=== PATIENT | female | born 1960 | race African-American/Black ===

== ENCOUNTER 2022-12-10 23:48 | Outpatient (CLI) | payer OTHER, MEDICAID | END 2022-12-10 23:49 | disposition left against medical advice (07) | LOC: EMS 23:48 | DX: R60.0 Localized edema (principal) ==

== ENCOUNTER 2024-01-09 12:07 | Emergency (ER) | payer OTHER, MEDICAID ==
[2024-01-09 12:51] VITALS: O2SAT 100
--- NOTE | 2024-01-09 15:03 | ED Physician Documentation ---
PD HPI LOWER EXT INJURY - Stated complaint Stated Complaint: LT LEG SWELLING, PX - Chief complaint Chief Complaint: Ext Problem - History obtained from History obtained from: Patient - Additional information Additional information: This is a 63-year-old woman who says she is completely healthy. She presents, in contrast to the nurses notes, with 3 days of severely painful swelling to the left lower extremity. After it started she stepped on a piece of broken glass and had a puncture in the skin. She had fevers and chills with this. Denies chest pain or trouble breathing. PD PAST MEDICAL HISTORY - Past Medical History Past Medical History: Yes Cardiovascular: None Respiratory: None Endocrine/Autoimmune: None GI: None DEVELOPMENT DISABILITY SPECIALIST: Ectopic : Incontinence HEENT: None Psych: Depression, Anxiety Musculoskeletal: None Derm: None - Past Surgical History Past Surgical History: Yes /DEVELOPMENT DISABILITY SPECIALIST: Other - Present Medications Home Medications: Ambulatory Orders Medication Instructions Recorded Confirmed Psych Meds Unknown 07/27/13 04/21/15 Clindamycin [Cleocin] 300 mg PO Q6H 10 Days capsule 04/21/15 Ibuprofen [Motrin] 800 mg PO Q8H PRN #30 tablet 04/21/15 Oxycodone HCl/Acetaminophen 1 - 2 tab PO Q4H PRN #15 tablet 04/21/15 [Percocet 5-325 mg Tablet] Oxycodone HCl/Acetaminophen 1 - 2 each PO Q6H PRN #14 tablet 01/09/24 [Percocet 5-325 mg Tablet] cephALEXin [Keflex] 500 mg PO Q6H #28 cap 01/09/24 - Allergies Allergies/Adverse Reactions: Allergies Allergy/AdvReac Type Severity Reaction Status Date / Time aspirin Allergy Nausea Verified 01/09/24 12:34 sunflower seeds Allergy Severe swelling Uncoded 09/05/13 11:01 tomatoes Allergy Severe swelling Uncoded 09/05/13 11:01 bathroom spray Allergy Mild Unknown Uncoded 09/04/13 14:38 - Social History Does the pt smoke?: Yes Smoking Status: Current every day smoker Does the pt drink ETOH?: Yes Does the pt have substance abuse?: No - Immunizations Immunizations are current?: No Immunizations: Other immun not current - POLST Patient has POLST: No PD ED PE NORMAL - Vitals Vital signs reviewed: Yes - General General: Alert and oriented X 3, Other (She is disheveled and smells strongly of tobacco and possibly of alcohol.) - Neck Neck: Supple, no meningeal sign, No bony TTP - Cardiac Cardiac: RRR, No murmur - Respiratory Respiratory: No respiratory distress, Clear bilaterally - Abdomen Abdomen: Non tender - Extremities Extremities: Other (The left leg is quite tender and swollen to mid thigh with some areas of weeping cellulitis. The foot is warm and well-perfused.) - Neuro Neuro: Alert and oriented X 3, No motor deficit, No sensory deficit, Normal speech Eye Opening: Spontaneous Motor: Obeys Commands Verbal: Oriented GCS Score: 15 - Psych Psych: Normal mood, Normal affect Results - Vitals Vitals: Vital Signs - 24 hr 01/09/24 01/09/24 12:36 16:31 Temperature 36.9 C 36.6 C Heart Rate 89 92 Respiratory 18 20 Rate Blood Pressure 109/57 L 109/71 O2 Saturation 100 100 Oxygen O2 Source Room air - Labs Labs: Laboratory Tests 01/09/24 01/09/24 01/09/24 15:11 15:11 15:11 WBC 13.0 H RBC 4.52 Hgb 13.8 Hct 41.8 MCV 92.5 MCH 30.5 MCHC 33.0 RDW 13.4 Plt Count 272 MPV 10.3 Neut # (Auto) 10.7 H Lymph # (Auto) 1.2 L Gilchrist # (Auto) 0.9 Eos # (Auto) 0.1 Baso # (Auto) 0.0 Absolute Nucleated RBC 0.00 Nucleated RBC % 0.0 Sodium 133 L Potassium 3.3 L Chloride 96 L Carbon Dioxide 28 Anion Gap 9.0 BUN 9 Creatinine 1.0 Estimated GFR (MDRD) 68 L Glucose 153 H Lactic Acid 2.7 H Calcium 9.2 Total Bilirubin 1.0 AST 13 ALT 16 Alkaline Phosphatase 73 Total Protein 7.3 Albumin 3.4 Globulin 3.9 Albumin/Globulin Ratio 0.9 L Ethyl Alcohol < 10.0 - Rads (name of study) Left leg DVT sono grossly negative with limited visualization of calf veins per RDMS Relevant Findings:: Prelim report reviewed PD Medical Decision Making - ED course ED course: She presents with left leg pain and swelling. It looks more like cellulitis than anything else. She has reassuring vital signs, no fever. Mild elevation of white count. She was administered antibiotics and DVT was ruled out. Departure - Departure Disposition: Home, Self Care Clinical Impression: Cellulitis Qualifiers: Site of cellulitis: extremity Site of cellulitis of extremity: lower extremity Laterality: left Qualified Code(s): L03.116 - Cellulitis of left lower limb Condition: Good Record reviewed to determine appropriate education?: Yes Instructions: Cellulitis Dc Follow-Up: Kaycee Sands MD [Provider Admit Priv/Credential] - Prescriptions: cephALEXin [Keflex] 500 mg PO Q6H #28 cap Oxycodone HCl/Acetaminophen [Percocet 5-325 mg Tablet] 1 - 2 each PO Q6H PRN #14 tablet PRN Reason: pain Comments: You have an infection known as cellulitis of your left leg. Elevate it is much as possible and I sent prescriptions for antibiotics and painkillers to [facility] at [address] [place] [address] [address] [facility] [place]. Follow-up with your primary care physician preferably Sunday or Sunday for recheck, call today for an appointment. I am prescribing a short course of narcotic pain medication for you. These are potentially dangerous and addictive medications that should be used carefully. These medications may constipate you. Take an avyp-zcb-nermddz stool softener (docusate) twice daily with plenty of water while taking these medications. If you go 24 hours without a bowel movement, take wkqc-[id number] miralax, per package instructions. Do not drink or drive while taking these medications. If you received narcotic or sedating medications while in the emergency department, do not drive for 24 hours. Store this medication in a safe, secure place and out of reach of children. It is a violation of federal law to give or sell this medication to another person or to use in a manner other than prescribed. The ED will not refill narcotic prescriptions, including prescriptions lost or stolen. To dispose of unwanted medications: 1. [facility] provides a drop box for medication in pill form only (no liquids) 8:00 am to 4:30 p.m. Sunday-Sunday in the lobby of the [facility], [address] Empty pills into ziplock bag before disposal. Call [phone] for information. 2.[employer] is a free service available to all [facility] residents. Go to [email or web address] Note that many narcotic pain relievers also contain Tylenol/acetaminophen. Please ensure that your total dose of acetaminophen from all sources does not exceed 3 g (3000 mg) per day. Forms: PCP List Discharge Date/Time: 01/09/24 16:31
[2024-01-09] MEDS: oxyCODONE 5 MG TABLET PO STA (15:16)
[2024-01-09 15:19] LABS: BASOPHILS % (AUTO) 0.3 %; EOSINOPHILS # (AUTO) 0.1 10^3/uL (0.0-0.7); EOSINOPHILS % (AUTO) 0.6 %; HCT - HEMATOCRIT 41.8 % (37.0-47.0); HGB - HEMOGLOBIN 13.8 g/dL (12.0-16.0); LYMPHOCYTES # (AUTO) 1.2 10^3/uL (1.5-3.5); LYMPHOCYTES % (AUTO) 9.4 %; MEAN CORPUSCULAR HEMOGLOBIN 30.5 pg (27.0-31.0); MEAN CORPUSCULAR VOLUME 92.5 fL (81.0-99.0); MEAN PLATELET VOLUME 10.3 fL (7.9-10.8); MONOCYTES # (AUTO) 0.9 10^3/uL (0.0-1.0); MONOCYTES % (AUTO) 6.5 %; NEUTROPHILS # (AUTO) 10.7 10^3/uL (1.5-6.6); NEUTROPHILS % (AUTO) 82.1 %; PLT - PLATELET COUNT 272 10^3/uL (130-450); RED BLOOD COUNT 4.52 10^6/uL (4.20-5.40); RED CELL DISTRIBUTION WIDTH 13.4 % (12.0-15.0)
[2024-01-09 15:32] LABS: ALBUMIN 3.4 g/dL (3.2-5.5); ALBUMIN/GLOBULIN RATIO 0.9 (1.0-2.2); ALKALINE PHOSPHATASE 73 IU/L (42-121); ALT ALANINE AMINOTRANSFERASE 16 IU/L (10-60); AST ASPARTATE AMINOTRANSFERASE 13 IU/L (10-42); BUN - BLOOD UREA NITROGEN 9 mg/dL (6-20); CALCIUM 9.2 mg/dL (8.5-10.3); CARBON DIOXIDE - CO2 28 mmol/L (21-32); CHLORIDE 96 mmol/L (101-111); ETOH - ETHANOL < 10.0 mg/dL; GFR - MDRD 68 (>89); GLUCOSE 153 mg/dL (74-104); POTASSIUM 3.3 mmol/L (3.5-4.5); SODIUM 133 mmol/L (135-145); TOTAL PROTEIN 7.3 g/dL (6.4-8.9)
[2024-01-09] MEDS: cephALEXin 250 MG CAPSULE PO STA (16:21)
--- NOTE | 2024-01-09 16:24 | Ultrasound Report ---
PROCEDURE: Duplex Ext Veins Left INDICATIONS: leg pain/swell TECHNIQUE: Real-time imaging, as well as color and pulse Doppler interrogation, were performed of the lower extr emity deep veins from the inguinal ligament to the popliteal fossa. Attempted visualization of the ca lf veins was performed. COMPARISON: None. FINDINGS: The deep veins are normally compressible, and free of intraluminal thrombus. Color and pu lse Doppler demonstrate normal phasic intraluminal flow. There is normal augmentation response to di stal compression maneuver. Lower leg edema. IMPRESSION: No deep venous thrombosis of the visualized lower extremity. Agree with preliminary interpretation provided to the ordering provider by the ultrasound technologis t. Reviewed by: Gabe Landin MD on 01/09/2024 3:23 PM ANUP Approved by: Gabe Landin MD on 01/09/2024 3:23 PM ANUP Station ID: [id number]
[2024-01-09 16:35] VITALS: BP 109/71
== END 2024-01-09 16:31 | disposition home or self-care (01) ==
LOC: ED 12:07
DX: L03.116 Cellulitis of left lower limb (principal); F17.200 Nicotine dependence, unspecified, uncomplicated
CPT/HCPCS: 36415; 80053; 82077; 83605; 85025; 87040; 93971; 99283; 99284; A9270

== ENCOUNTER 2025-03-03 12:21 | Observation (INO) ==
--- OUTSIDE RECORDS SUMMARY | 2025-03-03 12:45 | EXTERNAL MEDICAL SUMMARY RPT | Continuity of Care Document ---
Author Organization [facility] Address [address] [place] [id number] Phone Problems date description facility 2025-01-05 02:00 Unspecified corneal ulcer, righ t eye Replaced By [facility] 2025-01-05 11:47 Unspecified corneal ulcer, righ t eye Replaced By [facility] 2025-01-07 11:27 Unspecified corneal ulcer, righ t eye Replaced By [facility] 2025-01-07 11:27 Ocular pain, right eye Replaced By [facility] 2025-01-07 11:27 Other specified disorders of ey e and adnexa Replaced By [facility] Social History date description facility
[2025-03-03 14:17] LABS: HCT - HEMATOCRIT 34.4 % (37.0-47.0); HGB - HEMOGLOBIN 11.1 g/dL (12.0-16.0); MEAN PLATELET VOLUME 9.3 fL (7.9-10.8); NRBC ABSOLUTE COUNT (AUTO) 0.00 x10^3/uL; NUCLEATED RED BLOOD CELLS AUTO 0.0 /100WBC; PLT - PLATELET COUNT 409 10^3/uL (130-450); RED CELL DISTRIBUTION WIDTH 13.2 % (12.0-15.0)
--- NOTE | 2025-03-03 14:28 | ED Physician Documentation ---
History of Present Illness Stated complaint Stated Complaint: L LEG SWOLLEN Chief complaint Chief Complaint: Ext Problem History obtained from History obtained from: Patient and EMS History of Present Illness Pain level max: 5 Pain level now: 2 Additonal information Additional information: 65-year-old female, history of schizophrenia. Is apparently living in a hotel in the hotel not seeing her for a few days to call for a welfare check. EMS arrived and found her left foot red, warm, swollen. Brought her in. Patient does not know how long her leg has been swollen and painful for her. She states that she thinks that it started when she was walking in [place]. She states that she has had fevers and chills at home. She states it is painful to walk. Review of Systems Constitutional Reports: Fever and Chills Ears, nose, mouth, and throat Denies: Neck pain Cardiovascular Denies: chest pain Respiratory Denies: Cough Gastrointestinal Denies: Vomiting Musculoskeletal Denies: Back pain or Neck pain Integumentary/Breast Denies: Rash Meds/Allgy Home Medications Ambulatory Orders Medication Instructions Recorded Confirmed ofloxacin 0.3 % eye drops See Rx Instructions .Route 0 01/05/25 .COMPLEX #5 mL Allergies Allergies Allergy/AdvReac Type Severity Reaction Status Date / Time aspirin Allergy Nausea Verified 03/03/25 12:28 sunflower seed Allergy Edema Verified 03/03/25 14:12 tomato AdvReac Edema Verified 03/03/25 14:12 bathroom spray Allergy Mild Unknown Uncoded 03/03/25 12:28 PFSH Active Problems All Active Problems (Updated 03/03/25 @ 16:13 by Grupo Gaitan MD) Leukocytosis (Acute) Cellulitis (Acute) Corneal ulcer, right (Acute) Medical History Medical History (Updated 03/03/25 @ 16:13 by Grupo Gaitan MD) No pertinent past medical history Social History Social History (Updated 03/03/25 @ 14:18 by Joyce Boston, RN, BSN) Smoking Status: Smoker current status unk How many cigarettes a day do you smoke? (20 cigarettes=1 Pk): 10 Do you dip or chew tobacco?: No Do you vape?: No Patient requests smoking cessation consult: No Initiate information on smoking cessation: No Living arrangement: Other Living Arrangement Notes: unknown Do you feel safe in your home environment?: Yes History of physical, verbal, emotional, or financial abuse?: No Frequency: Occasional Are you sexually active?: Yes POLST Patient has POLST: No Exam Exam Vital Signs: Vital Signs x48h Temp Pulse Resp BP Pulse Ox 03/03/25 14:18 18 129/71 03/03/25 12:28 36.7 C 87 18 103/68 94 Constitutional normal general appearance and no apparent distress HENMT oropharynx normal moist mucous membranes Eyes PERRL Neck/C-Spine visual inspection normal Respiratory breath sounds equal bilaterally, normal respiratory effort and clear to auscultation bilaterally Cardiovascular normal heart rate noted and regular rhythm noted Gastrointestinal abdomen normal to inspection, abdomen soft to palpation, nontender to palpation and nondistended Genitourinary no CVA tenderness Extremities Patient has scaling and peeling to the bilateral lower extremities skin. Has swelling to the dorsum of the left foot with erythema, warmth. No drainage. The erythema extends up to the knee. Does not go past the knee. Neurology speech normal Psychiatry mental status grossly normal and oriented x3 Skin skin color normal Results Vitals Vitals: Vital Signs - 24 hr 03/03/25 12:28 03/03/25 14:18 Temperature 36.7 C Pulse Rate 87 Respiratory Rate 18 18 Blood Pressure 103/68 129/71 O2 Saturation 94 O2 Source Room air Room air Pain Intensity 9 Oxygen O2 Source Room air Labs Labs: Laboratory Tests 03/03/25 14:00 WBC 15.5 H RBC 3.65 L Hgb 11.1 L Hct 34.4 L MCV 94.2 MCH 30.4 MCHC 32.3 RDW 13.2 Plt Count 409 MPV 9.3 Neut # (Auto) 13.7 H Lymph # (Auto) 1.1 L [place]ano # (Auto) 0.6 Eos # (Auto) 0.0 Baso # (Auto) 0.0 Absolute Nucleated RBC 0.00 Nucleated RBC % 0.0 Sodium 133 L Potassium 3.6 Chloride 99 L Carbon Dioxide 27 Anion Gap 7.0 BUN 11 Creatinine 0.9 Estimated GFR (MDRD) 77 L Glucose 119 H Calcium 8.4 L Total Bilirubin 0.8 AST 15 ALT 6 L Alkaline Phosphatase 56 Total Protein 7.7 Albumin 3.0 L Globulin 4.7 H Albumin/Globulin Ratio 0.6 L Rads (name of study) Left foot x-ray: Relevant Findings:: Final report received PD Medical Decision Making ED course Complexity details: reviewed results, re-evaluated patient, considered differential and d/w patient ED course: Patient with a significant cellulitis that starts in the left foot, goes up the dorsum of the left foot and up to the knee. Has some chronic skin breakdown on the bilateral lower extremities. White blood cell count is over 15,000. Has had subjective fevers at home. Given IV vancomycin and ceftriaxone here. Given the significant warmth and swelling of the left lower extremity along with the significant cellulitis and leukocytosis, feel this patient would be best observed in the hospital overnight to ensure that symptoms are improving as expected. Discussed the case with the hospitalist who accepts. No acute findings on x-ray of the left foot. This document was made in part using voice recognition software. While efforts are made to proofread this document, sound alike and grammatical errors may occur. Discharge Plan Discharge Patient Disposition: ED Place in Observation Condition: Stable Clinical Impression: Cellulitis Qualifiers: Site of cellulitis: extremity Site of cellulitis of extremity: lower extremity Laterality: left Qualified Code(s): L03.116 - Cellulitis of left lower limb Leukocytosis Qualifiers: Leukocytosis type: unspecified Qualified Code(s): D72.829 - Elevated white blood cell count, unspecified Interventions: ED Admission Assessment Last Done: 03/03/25 16:52
[2025-03-03] MEDS ORDERED: VANCOMYCIN 1 GM VIAL ONE (14:29)
[2025-03-03 14:32] LABS: ALT ALANINE AMINOTRANSFERASE 6.0 IU/L (10-60); AST ASPARTATE AMINOTRANSFERASE 15.0 IU/L (10-42); BUN - BLOOD UREA NITROGEN 11.0 mg/dL (6-20); CARBON DIOXIDE - CO2 27.0 mmol/L (21-32); CREATININE 0.9 mg/dL (0.6-1.3); GFR - MDRD 77.0 (>89)
[2025-03-03] MEDS: cefTRIAXone 1 GM VIAL IVP STA (14:38)
[2025-03-03] MEDS: VANCOMYCIN INJ 1 GM, VANCOMYCIN INJ 250 MG in SODIUM CHLORIDE 0.9% 250 ML IV STA (14:40)
[2025-03-03] MEDS: VANCOMYCIN INJ 1.25 GM in SODIUM CHLORIDE 0.9% 250 ML IV STA (14:47)
--- NOTE | 2025-03-03 16:17 | HISTORY & PHYSICAL EXAMINATION ---
Chief Complaint Chief Complaint Chief Complaint: Left leg pain and swelling History of Present Illness Admitted From Admitted From:: Home History Obtained From Records Reviewed: EMR History obtained from: Patient Exam Limitations: None History of Present Illness HPI Comment/Other: Patient is a 65-year-old female with a history of schizophrenia who presents due to left lower extremity pain. Per patient, she was in [place] over the weekend, and she spent a lot of time walking. Since then, she has had pain and swelling in her left leg. She does not think she hit her foot on anything. She noticed worsening redness, as well as swelling from her right foot all the way up to her right leg. She also endorses some fevers and chills at home. Both her legs are swollen at times, and she has noticed thickening of the skin. She has never been formally diagnosed with lymphedema. ER documentation was reviewedapparently, she has been living in a hotel in the hotel has not seen her for a few days, so they called EMS for a welfare check. EMS brought her in when they noted her right foot. She does have a history of schizophrenia, but she has not been taking any medications for it. She denies any hallucinations, or any episodes of recent psychosis. In the ER, she was vitally stableafebrile, saturating 94% on room air, respiratory rate was 18, heart rate was 87, and blood pressure was 103/68. Lab work was reviewedshowed a white count of 15.5, hemoglobin 11.1. X-ray of the foot showed soft tissue swelling. She was given a dose of Rocephin and vancomycin by the ED and admitted for cellulitis. Meds/Allgy Home Medications Ambulatory Orders Medication Instructions Recorded Confirmed ofloxacin 0.3 % eye drops See Rx Instructions .Route 0 01/05/25 .COMPLEX #5 mL Allergies Allergies Allergy/AdvReac Type Severity Reaction Status Date / Time aspirin Allergy Nausea Verified 03/03/25 12:28 sunflower seed Allergy Edema Verified 03/03/25 14:12 tomato AdvReac Edema Verified 03/03/25 14:12 bathroom spray Allergy Mild Unknown Uncoded 03/03/25 12:28 PFSH Active Problems All Active Problems (Updated 03/03/25 @ 17:55 by Aaliyah Shell MD) Venereal disease screening (Acute) Schizophrenia (Acute) Leukocytosis (Acute) Cellulitis (Acute) Corneal ulcer, right (Acute) Medical History Medical History (Updated 03/03/25 @ 17:55 by Aaliyah Shell MD) No pertinent past medical history Social History Social History (Updated 03/03/25 @ 17:19 by Grupo Gaitan MD) Smoking Status: Smoker current status unk How many cigarettes a day do you smoke? (20 cigarettes=1 Pk): 10 Do you dip or chew tobacco?: No Do you vape?: No Patient requests smoking cessation consult: No Initiate information on smoking cessation: No Living arrangement: Other Living Arrangement Notes: unknown Level: Independent Home Mobility Equipment: Cane Do you feel safe in your home environment?: Yes History of physical, verbal, emotional, or financial abuse?: No Frequency: Occasional Substance Use: denies use Are you sexually active?: Yes POLST Patient has POLST: No Review of Systems Constitutional Reports: Fever, Chills and Malaise; Denies: Fatigue, Weakness or Poor appetite Eyes Denies: Pain, Irritation, Blurry vision, Vision loss, Diplopia or Eye discomfort Ears, nose, mouth, and throat Denies: Ear pain, Hearing loss, Tinnitus, Nose bleeds, Nasal discharge, Mouth lesions or Bleeding gums Cardiovascular Denies: Irregular heart rate, chest pain, palpitations, edema, Syncope or shortness of breath with exertion Respiratory Denies: Shortness of breath, Cough, Sputum production or Wheezing Gastrointestinal Denies: Abdominal pain, Abdominal distention, Nausea, Vomiting, Heartburn, Diarrhea or Constipation Genitourinary Denies: Painful urination, Urinary frequency or Urinary urgency Musculoskeletal Reports: Extremity pain and Extremity swelling; Denies: Back pain or Joint pain Integumentary/Breast Reports: Rash, Dryness, Redness, Skin pain, Skin tenderness and Skin swelling; Denies: Itching Neurological Reports: Headache; Denies: General weakness, Weakness in extremities, Numbness in extremities, Abnormal gait or Dizziness Psychiatric Denies: Depression, Anxiety, Mood swings or Panic attacks Endocrine Denies: Excessive urination, Excessive thirst or Fatigue Hematologic/Lymphatic Denies: Anemia, Easy bruising or Easy bleeding Allergic/Immunologic Denies: Hives, Tongue swelling, Facial swelling or Wheezing Prior Level of Functionality: Lives in shelters. Exam Exam Vital Signs: Vital Signs x48h Temp Pulse Pulse Resp BP BP Pulse Ox 03/03/25 17:40 98.6 F 93 20 125/70 98 03/03/25 16:52 84 18 112/84 03/03/25 16:42 89 21 112/62 97 03/03/25 14:18 18 129/71 03/03/25 12:28 98.1 F 87 18 103/68 94 Constitutional normal general appearance, no apparent distress, average body habitus and no limitations HENMT normocephalic, head/scalp atraumatic and hearing grossly normal bilaterally Eyes PERRL, EOMs intact bilaterally and conjunctivae normal Neck/C-Spine visual inspection normal, trachea midline and cervical spine nontender Chest inspection of chest normal Respiratory breath sounds equal bilaterally, normal respiratory effort, clear to auscultation bilaterally, no wheezes, no rales and no retractions Cardiovascular normal heart rate noted, regular rhythm noted, no gallop, no rub and no murmur Gastrointestinal abdomen normal to inspection, abdomen soft to palpation, nontender to palpation and normoactive bowel sounds Genitourinary no CVA tenderness and bladder normal to palpation Back/Pelvis spine normal to inspection, no thoracic spine tenderness and no lumbar spine tenderness Extremities Lichenification of bilateral lower extremities. No open cuts or wounds or obvious areas of fluctuance. Left lower extremity significantly warmer, with erythema streaking upwards towards inner thigh. Right lower extremity greater than left lower extremity circumferentially. Neurology no movement abnormality noted and no focal motor deficit noted Psychiatry mental status grossly normal, oriented x3, thought process normal, cooperative and affect normal Skin See extremity exam above. Conclusion/Plan Problem List (1) Cellulitis: Plan: Patient presents with swelling, erythema of left lower leg. Appears to have chronic lymphedema changes. Also has a leukocytosis of 15, and endorses subjective fevers and chills at home. Continue IV vancomycin. Blood cultures ordered, pending. Continue gentle IV fluid rehydration. Qualifiers: Laterality: left Site of cellulitis: extremity Site of cellulitis of extremity: lower extremity Qualified Code(s): L03.116 - Cellulitis of left lower limb (2) Leukocytosis: Plan: See above. Qualifiers: Leukocytosis type: unspecified Qualified Code(s): D72.829 - Elevated white blood cell count, unspecified (3) Schizophrenia: Plan: Patient with history of schizophrenia. Not on any current medications. Not an active psychosis at this time. Should follow-up with psychiatry in the outpatient setting. Qualifiers: Schizophrenia type: unspecified Qualified Code(s): F20.9 - Schizophrenia, unspecified (4) Venereal disease screening: Plan: Patient has requested STD testing: Will order HIV, syphilis, trichomonas, chlamydia, gonorrhea. Lab Results Lab results reviewed: Yes 03/03/25 14:00 03/03/25 14:00 Diagnostic Imaging Results Diagnostic Imaging Results: positive Final report reviewed Core Measures Anticipated LOS I expect patient to be DC'd or transferred within 96 hours.: Yes DVT/VTE - Prophylaxis VTE/DVT Device ordered at admit?: Yes VTE/DVT Prophylaxis med ordered at admit?: Yes
--- NOTE | 2025-03-03 16:51 | XRAY Report ---
PROCEDURE: XR Foot 3+V LT INDICATIONS: cellulitis, pain, swelling TECHNIQUE: 3 views of the foot were acquired. COMPARISON: None. FINDINGS: Bones: No acute fractures or dislocations. No suspicious bony lesions. Small posterior and plantar calcaneal enthesophytes. Scattered degenerative changes in the interphalangeal joints of toes. Soft tissues: Diffuse nonspecific soft tissue edema. IMPRESSION: Diffuse nonspecific soft tissue swelling. No soft tissue gas. No radiographic signs of osteomyelitis. Reviewed by: Deion Márquez MD on 03/03/2025 4:50 PM PDT Approved by: Deion Márquez MD on 03/03/2025 4:50 PM PDT Station ID: [id number]
[2025-03-03] MEDS: SODIUM CHLORIDE FLUSH 0.9% 10 ML SYRINGE IVP SCH (17:40)
[2025-03-03] MEDS: LACTATED RINGERS 1,000 ML IV SCH (17:40)
[2025-03-03 18:25] LABS: HIV RAPID SCREEN NEGATIVE (NEGATIVE)
[2025-03-03] MEDS: VANCOMYCIN INJ 1 GM in SODIUM CHLORIDE 0.9% 250 ML IV SCH (21:52)
[2025-03-03] MEDS: oxyCODONE 5 MG TABLET PO PRN (21:57)
[2025-03-03] MEDS: ACETAMINOPHEN 325 MG TABLET PO PRN (21:57)
[2025-03-03 22:50] LABS: CHLAMYDIA TRACHOMATIS DNA NEGATIVE (NEGATIVE); NEISSERIA GONORRHOEAE DNA NEGATIVE (NEGATIVE)
[2025-03-03 22:51] LABS: TRICHOMONAS VAGINALIS DNA POSITIVE (NEGATIVE)
--- NOTE | 2025-03-03 23:03 | Ultrasound Report ---
PROCEDURE: US Venous Duplex LT INDICATIONS: rule out DVT TECHNIQUE: Real-time imaging, as well as color and pulse Doppler interrogation, were performed of the lower extremity deep veins from the inguinal ligament to the popliteal fossa. Attempted visualization of the calf veins was performed. COMPARISON: None. FINDINGS: The deep veins are normally compressible, and free of intraluminal thrombus. Color and pulse Doppler demonstrate normal phasic intraluminal flow. There is normal augmentation response to distal compression maneuver. Borderline enlarged left inguinal lymph node. IMPRESSION: No deep venous thrombosis of the visualized lower extremity. Reviewed by: Deepali Cottrell MD on 03/03/2025 11:02 PM PDT Approved by: Deepali Cottrell MD on 03/03/2025 11:02 PM PDT Station ID: [id number]
[2025-03-04 05:35] LABS: HCT - HEMATOCRIT 30.6 % (37.0-47.0); HGB - HEMOGLOBIN 10.0 g/dL (12.0-16.0); MEAN PLATELET VOLUME 9.2 fL (7.9-10.8); PLT - PLATELET COUNT 309.0 10^3/uL (130-450); RED CELL DISTRIBUTION WIDTH 13.3 % (12.0-15.0)
[2025-03-04 05:54] LABS: BUN - BLOOD UREA NITROGEN 13.0 mg/dL (6-20); CARBON DIOXIDE - CO2 25.0 mmol/L (21-32); CREATININE 1.0 mg/dL (0.6-1.3); GFR - MDRD 68.0 (>89)
[2025-03-04] MEDS: ENOXAPARIN 40 MG/0.4 ML SYRINGE SUBQ SCH (08:37)
--- NOTE | 2025-03-04 13:05 | PROVIDER PROGRESS NOTE ---
Subjective Subjective Subjective: Patient is feeling better today. She still states that she has some fevers and chills. Her right leg is itchy, but her left leg has improved in pain and redness and warmth. Current Medications Current Medications Current Medications: Current Medications Generic Name Dose Route Start Last Admin Trade Name Freq PRN Reason Stop Dose Admin Acetaminophen 650 mg 03/03/25 21:10 03/03/25 21:57 Acetaminophen 325 Mg Tablet PO 650 mg Q4HR PRN Administration Pain or Fever > 38C (100.4F) Enoxaparin Sodium 40 mg 03/04/25 09:00 03/04/25 08:37 Enoxaparin 40 Mg/0.4 Ml Syringe SUBQ 40 mg DAILY YOANDY Administration Vancomycin HCl 1 gm/ Sodium 250 mls @ 167 mls/hr 03/03/25 22:00 03/04/25 10:12 Chloride IV 167 mls/hr Q12H YOANDY Administration Oxycodone HCl 5 mg 03/03/25 21:10 03/04/25 03:58 Oxycodone 5 Mg Tablet PO 5 mg Q4HR PRN Administration Moderate Pain (Level 4-6) Sodium Chloride 10 ml 03/03/25 17:14 Sodium Chloride Flush 0.9% 10 Ml Syringe IVP PRN PRN NEEDED PER PROVIDER ORDERS Sodium Chloride 10 ml 03/03/25 17:14 03/04/25 08:37 Sodium Chloride Flush 0.9% 10 Ml Syringe IVP Not Given 0100,0900,1700 [facility] Objective Vital Signs/Intake & Output Reviewed Vital Signs: Yes Vital Signs: Vital Signs x48h Temp Pulse Resp BP Pulse Ox 03/04/25 08:13 97.9 F 80 16 106/56 L 96 Intake & Output: Intake & Output 03/01/25 03/02/25 03/03/25 03/04/25 23:59 23:59 23:59 23:59 Intake Total 800 / 800 1420 / 1420 Output Total 500 / 500 Balance 800 / 800 920 / 920 Weight (kg) 84.5 kg Objective General Appearance: positive No acute distress and Alert; negative Anxious Eyes Bilateral: positive Normal inspection, PERRL and EOMI ENT: positive ENT inspection nml, Pharynx nml and No signs of dehydration Neck: positive Nml inspection, Thyroid nml and No JVD Respiratory: positive Chest non-tender, No respiratory distress and Breath sounds nml; negative Wheezes, Rales or Rhonchi Cardiovascular: positive Regular rate & rhythm, No murmur and No gallop; negative Tachycardia or Systolic murmur Abdomen: positive Non-tender, No organomegaly and No distention; negative Guarding or Splenomegaly Back: positive Nml inspection; negative CVA tenderness (R) or CVA tenderness (L) Skin: positive Other (Lichenification of bilateral lower extremities. No open cuts or wounds or obvious areas of fluctuance. Left lower extremity significantly warmer, with erythema streaking upwards towards inner thigh. Right lower extremity greater than left lower extremity circumferentially.) Extremities: positive Full ROM and Nml appearance Neurologic/Psychiatric: positive Oriented x3, Motor nml and Mood/affect nml Lab Results 03/04/25 05:28 03/04/25 05:28 Other Labs: Lab Results x24hrs 03/04/25 03/03/25 03/03/25 Range/Units 05:28 19:30 14:00 WBC 12.2 H 15.5 H (4.8-10.8) x10^3/uL RBC 3.24 L 3.65 L (4.20-5.40) 10^6/uL Hgb 10.0 L 11.1 L (12.0-16.0) g/dL Hct 30.6 L 34.4 L (37.0-47.0) % MCV 94.4 94.2 (81.0-99.0) fL MCH 30.9 30.4 (27.0-31.0) pg MCHC 32.7 32.3 (32.0-36.0) g/dL RDW 13.3 13.2 (12.0-15.0) % Plt Count 309 409 (130-450) 10^3/uL MPV 9.2 9.3 (7.9-10.8) fL Neut # (Auto) 13.7 H (1.5-6.6) 10^3/uL Lymph # (Auto) 1.1 L (1.5-3.5) 10^3/uL Morgan # (Auto) 0.6 (0.0-1.0) 10^3/uL Eos # (Auto) 0.0 (0.0-0.7) 10^3/uL Baso # (Auto) 0.0 (0.0-0.1) 10^3/uL Absolute Nucleated RBC 0.00 x10^3/uL Nucleated RBC % 0.0 /100WBC Sodium 133 L 133 L (135-145) mmol/L Potassium 3.5 3.6 (3.5-4.5) mmol/L Chloride 103 99 L (101-111) mmol/L Carbon Dioxide 25 27 (21-32) mmol/L Anion Gap 5.0 L 7.0 (6-13) BUN 13 11 (6-20) mg/dL Creatinine 1.0 0.9 (0.6-1.3) mg/dL Estimated GFR (MDRD) 68 L 77 L (>89) Glucose 126 H 119 H (74-104) mg/dL Calcium 8.0 L 8.4 L (8.5-10.3) mg/dL Magnesium 1.7 (1.7-2.3) mg/dL Total Bilirubin 0.8 (0.2-1.0) mg/dL AST 15 (10-42) IU/L ALT 6 L (10-60) IU/L Alkaline Phosphatase 56 (42-121) IU/L Total Protein 7.7 (6.4-8.9) g/dL Albumin 3.0 L (3.2-5.5) g/dL Globulin 4.7 H (2.1-4.2) g/dL Albumin/Globulin Ratio 0.6 L (1.0-2.2) Chlam trachomat DNA PCR NEGATIVE (NEGATIVE) HIV 1&2 Antibody Rapid NEGATIVE (NEGATIVE) N.gonorrhoeae DNA (PCR) NEGATIVE (NEGATIVE) T. vaginalis (PCR) POSITIVE A (NEGATIVE) Assessment/Plan Problem List (1) Cellulitis: Impression: Patient presented with swelling, erythema of left lower leg. Appears to have chronic lymphedema changes. Also had a leukocytosis of 15, and endorses subjective fevers and chills at home. Leukocytosis slightly improved today as has redness and pain. Continue IV vancomycin. Blood cultures ordered, pending. MRSA swab also ordered - if negative, will switch to IV cephalexin. Will need one more day of IV antibiotics. Plan to switch to oral antibiotics tomorrow if continued clinical improvement. Qualifiers: Laterality: left Site of cellulitis: extremity Site of cellulitis of extremity: lower extremity Qualified Code(s): L03.116 - Cellulitis of left lower limb (2) Leukocytosis: Impression: See above. Improving. Qualifiers: Leukocytosis type: unspecified Qualified Code(s): D72.829 - Elevated white blood cell count, unspecified (3) Schizophrenia: Impression: Patient with history of schizophrenia. Not on any current medications. Not an active psychosis at this time. Should follow-up with psychiatry in the outpatient setting. Qualifiers: Schizophrenia type: unspecified Qualified Code(s): F20.9 - Schizophrenia, unspecified (4) Venereal disease screening: Impression: Patient has requested STD testing: HIV, chlamydia, gonorrhea negative. Syphilis RPR pending. Trichomonas positive. Will treat with Flagyl 500mg BID for 7 days. Advised to tell her sexual partners to be treated as well.
[2025-03-04] MEDS: NICOTINE 21 MG PATCH TOP SCH (22:04)
[2025-03-04] MEDS: ethyl alcohoL 62% SWAB AMPULE NAS SCH (22:07)
[2025-03-05 04:53] LABS: HCT - HEMATOCRIT 30.8 % (37.0-47.0); HGB - HEMOGLOBIN 9.5 g/dL (12.0-16.0); MEAN PLATELET VOLUME 9.7 fL (7.9-10.8); PLT - PLATELET COUNT 304.0 10^3/uL (130-450); RED CELL DISTRIBUTION WIDTH 13.5 % (12.0-15.0)
[2025-03-05] MEDS: ONDANSETRON 4 MG/2 ML VIAL IVP PRN (05:01)
[2025-03-05] MEDS: SODIUM CHLORIDE FLUSH 0.9% 10 ML SYRINGE IVP PRN (05:01)
[2025-03-05 05:12] LABS: BUN - BLOOD UREA NITROGEN 16.0 mg/dL (6-20); CARBON DIOXIDE - CO2 24.0 mmol/L (21-32); CREATININE 1.4 mg/dL (0.6-1.3); GFR - MDRD 46.0 (>89)
[2025-03-05 07:56] VITALS: O2SAT 96
[2025-03-05 08:09] LABS: RPR Non Reactive (Non Reactive)
--- NOTE | 2025-03-05 10:13 | Discharge Summary ---
"Discharge Summary Admit Date: 03/03/25 Discharge Date: 03/05/25 Discharging Provider: Dr. Aaliyah Shell Primary Care Provider: None Code Status: Attempt Resuscitation Discharge Facility Name: Home DIAGNOSES Discharge Diagnoses with Status of Each Condition: Cellulitispatient presented with swelling, erythema of left lower leg. MRSA swab was positive. Received IV vancomycin for 2 days. Will send her home on 5 further days of oral antibiotics, with doxycycline 100 mg twice daily. It appears that she may have some chronic lymphedema. She needs follow-up with a primary care provider who can provide a referral to lymphedema clinic for better management of this chronic condition. Leukocytosisresolved. Schizophreniapatient needs follow-up with psychiatry in the outpatient setting. She is not actively psychotic. But she has not been on any medications for a few years now. Neuro disease screeningas requested by the patient. Was positive for trichomonas. Will need 7 days of oral Flagyl for treatment. She is also advised to let her sexual partners know of this positive STD test, and to get tested and treated accordingly. HPI History of Present Illness: Patient is a 65-year-old female with a history of schizophrenia who presents due to left lower extremity pain. Per patient, she was in [place] over the weekend, and she spent a lot of time walking. Since then, she has had pain and swelling in her left leg. She does not think she hit her foot on anything. She noticed worsening redness, as well as swelling from her right foot all the way up to her right leg. She also endorses some fevers and chills at home. Both her legs are swollen at times, and she has noticed thickening of the skin. She has never been formally diagnosed with lymphedema. ER documentation was reviewedapparently, she has been living in a hotel in the hotel has not seen her for a few days, so they called EMS for a welfare check. EMS brought her in when they noted her right foot. She does have a history of schizophrenia, but she has not been taking any medications for it. She denies any hallucinations, or any episodes of recent psychosis. In the ER, she was vitally stableafebrile, saturating 94% on room air, respiratory rate was 18, heart rate was 87, and blood pressure was 103/68. Lab work was reviewedshowed a white count of 15.5, hemoglobin 11.1. X-ray of the foot showed soft tissue swelling. She was given a dose of Rocephin and vancomycin by the ED and admitted for cellulitis. CONSULTS | PROCEDURES Procedures: X-ray of the left foot, ultrasound duplex venous of left foot HOSPITAL COURSE Hospital Course: Patient is a 65-year-old female with a history of schizophrenia, what appears to be chronic lymphedema who presents with left lower extremity swelling, redness, tenderness to touch. There were no obvious areas of fluctuance or any open cuts noted. MRSA swab was positive. She had leukocytosis which resolved with 2 days of IV vancomycin. Her redness and tenderness also resolved. She will need 5 more days of oral antibiotics with doxycycline 100 mg twice daily to complete course for the cellulitis. Likely, she has some underlying lymphedema, for which she should see a lymphedema specialist or clinic. She also requested venereal disease screening, and tested positive for trichomonas, and will complete 7 days of oral Flagyl for this. She was advised to let her sexual partners know of this positive test to get tested and treated. ALLERGIES Allergies Allergy/AdvReac Type Severity Reaction Status Date / Time aspirin Allergy Nausea Verified 03/03/25 12:28 sunflower seed Allergy Edema Verified 03/03/25 14:12 tomato AdvReac Edema Verified 03/03/25 14:12 bathroom spray Allergy Mild Unknown Uncoded 03/03/25 12:28 MEDICATIONS Ambulatory Orders Medication Instructions Recorded Confirmed doxycycline hyclate 100 mg capsule 100 mg PO BID 5 day s #10 caps 03/05/25 metronidazole 250 mg tablet 500 mg (2 x 250 mg) PO BID 5 days 03/05/25 #20 tabs PHYSICAL EXAM AT DISCHARGE Vital Signs: Vital Signs x48h Temp Pulse Resp BP Pulse Ox 03/05/25 12:10 97.9 F 72 18 112/68 96 03/05/25 07:55 97.7 F 61 16 108/59 L 96 General Appearance: positive No acute distress and Alert; negative Anxious Eyes Bilateral: positive Normal inspection, PERRL and EOMI ENT: positive ENT inspection nml, Pharynx nml and No signs of dehydration Neck: positive Nml inspection, Thyroid nml and No JVD Respiratory: positive Chest non-tender, No respiratory distress and Breath sounds nml; negative Wheezes, Rales or Rhonchi Cardiovascular: positive Regular rate & rhythm, No murmur and No gallop; negative Tachycardia or Systolic murmur Abdomen: positive Non-tender, No organomegaly and No distention; negative Guarding or Splenomegaly Back: positive Nml inspection; negative CVA tenderness (R) or CVA tenderness (L) Skin: positive Other (Lichenification of bilateral lower extremities. No open cuts or wounds or obvious areas of fluctuance. Improved erythema and tenderness noted) Extremities: positive Full ROM and Nml appearance Neurologic/Psychiatric: positive Oriented x3, Motor nml and Mood/affect nml LABS 03/05/25 04:34 03/05/25 04:34 FOLLOW UP Follow Up: Follow-up with primary care provider. Follow-up with lymphedema clinic. TIME SPENT Time Spent in Discharge (Minutes): 35 Discharge Plan Discharge Patient Disposition: Home, Self Care Condition: Stable Prescriptions: New metronidazole 250 mg Tablet 500 mg PO BID 5 Days Qty: 20 0RF doxycycline hyclate 100 mg capsule 100 mg PO BID 5 Days Qty: 10 0RF Diet: Regular Interventions: Belongings Inventory Last Done: 03/03/25 17:41 Discharge Last Done: 03/05/25 11:48 Discharge Checklist - Nursing Last Done: 03/05/25 12:50 Discharge Vital Signs (30 Minutes) Last Done: 03/05/25 12:10 Health Concerns: You came in because you were having pain and redness and swelling of your left lower leg. You were found to have infection of your skin or cellulitis. We started you on strong IV antibiotics for this. It appears to be improved. Your infection numbers are also normal. I will be sending you home with 5 more days of oral antibiotics, doxycycline 100 mg that you need to take twice a day. As discussed, I think you may have a disease called lymphedema which causes swelling of your lower extremities, for which you should see a lymphedema clinic/specialist. Please elevate your legs is much as you can to help remove some of that fluid. When you make an appointment with a primary care provider, they will be able to make this referral for you. Additionally, you were found to have a sexually-transmitted infection called trichomonas. For this, you will require different antibiotic called metronidazole for 5 more days, 2 tabs twice a day. You should also inform any sexual partners you may have to also get tested and treated for this. Please follow-up closely with the primary care provider. Thank you for allowing us to take care of you; we are glad you're feeling better. Print Language: Cypriot Patient Instructions: Cellulitis Dc, ED Trichomoniasis Stand Alone Forms: PCP List Vitals documented within 30 minutes of discharge?: Yes"
[2025-03-05] MEDS: LACTATED RINGERS 500 ML IV ONE (11:31)
[2025-03-05 12:52] VITALS: BP 112/68; TEMP 97.9
== END 2025-03-05 12:35 | disposition home or self-care (01) ==
LOC: MS3 12:21 → ED 12:21 → MS3 18:12
PROVIDERS: ADMIT Internal Medicine; ATTEND Internal Medicine
DX: F20.9 Schizophrenia, unspecified; Z11.4 Encounter for screening for human immunodeficiency virus [HIV]; Z11.3 Encounter for screening for infections with a predominantly sexual mode of transmission; Z22.322 Carrier or suspected carrier of Methicillin resistant Staphylococcus aureus; F17.210 Nicotine dependence, cigarettes, uncomplicated; Z88.8 Allergy status to other drugs, medicaments and biological substances; L28.0 Lichen simplex chronicus; L03.116 Cellulitis of left lower limb; Z91.018 Allergy to other foods; A59.9 Trichomoniasis, unspecified